=== PATIENT | female | born 2005 ===

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

== ENCOUNTER 2023-01-14 22:50 | Emergency (ER) | payer BC, OTHER ==
[~2023-01-14] VITALS: Ht 157.5 cm; Wt 70.8 kg
[2023-01-14 23:04] VITALS: BP 142/83
[2023-01-14] MEDS ORDERED: Cellcept500 MG PO (23:08)
[2023-01-14] MEDS ORDERED: HYDHCL25 PO (23:22)
== END 2023-01-14 23:33 | disposition home or self-care (01) ==
LOC: ER 22:50
DX: L30.8 Other specified dermatitis (principal)
CPT/HCPCS: A9270

== ENCOUNTER 2023-05-23 12:47 | Observation (INO) | payer BC, OTHER ==
[~2023-05-23] VITALS: Ht 157.5 cm; Wt 69.1 kg
[~2023-05-23 12:47] MED LIST changes: +Acetaminophen650 M1 PO; +CEFP200 PO; +COLCHICINE0.6 MG PO; +Cellcept500 MG PO; +DELTASONE20 MG PO; +FURO20 PO; +HYDHCL25 PO; +JARDIANCE10 MG PO; +LOSA25 PO; +METO25ER PO; +PROBIOTIC1 EA13 PO; +TRONOLANE TOP; +VANCOCIN HCL125 MG PO
[2023-05-23 13:22] LABS: Hematocrit 31.1 % (33.0-51.0); Hemoglobin 9.8 g/dL (11.5-16.0); Mean Corpuscular HGB 24.1 pg (26.0-34.0); Mean Corpuscular HGB Conc 31.5 g/dL (31.5-36.5); Mean Corpuscular Volume 76 fL (80-100); Mean Platelet Volume 10.5 fL (9.1-12.4); Platelet Count 366 K/mm3 (150-400); RDW Standard Deviation 47.5 fL (35.1-46.3); Red Blood Cell Count 4.07 M/mm3 (3.80-5.20); White Blood Cell Count 24.62 K/mm3 (4.00-11.30)
[2023-05-23 13:42] LABS: Albumin, Blood 2.3 g/dL (3.4-5.0); Albumin/Globulin Ratio 0.5 (0.8-1.8); Bilirubin, Total 1.6 mg/dL (0.1-1.0); Bun/Creatinine Ratio 15.4 (12.0-20.0); Calcium, Blood 9.1 mg/dL (8.5-10.1); Creatinine, Blood 0.78 mg/dL (0.40-1.00); Globulin, Blood 4.9 g/dL (2.2-4.0); Potassium, Blood 4.5 mmol/L (3.5-5.5); Total Protein, Blood 7.2 g/dL (6.4-8.2)
[2023-05-23 14:10] LABS: BAND PERCENT MAN 45 % (0-8); BASOPHILS PERCENT MAN 0 % (0-2); EOSINOPHILS PERCENT MAN 0 % (0-6); LYMPHOCYTES ABSOLUTE MAN 2.46 K/mm3 (0.84-5.20); LYMPHOCYTES PERCENT MAN 10 % (21-46); MONOCYTES ABSOLUTE MAN 0.98 K/mm3 (0.16-1.47); MONOCYTES PERCENT MAN 4 % (4-13); MYELOCYTE ABSOLUTE MAN 0.24 K/mm3 (0.00-0.00); MYELOCYTE PERCENT MAN 1 % (0-0); NEUTROPHILS ABSOLUTE MAN 20.92 K/mm3 (1.96-9.15); SEG NEUTROPHILS PERCENT MAN 40 % (41-73); TOTAL CELLS COUNTED 100
[2023-05-23 15:53] LABS: Albumin, Blood 2.3 g/dL (3.4-5.0); Albumin/Globulin Ratio 0.5 (0.8-1.8); Bilirubin, Direct 1.2 mg/dL (0.0-0.3); Bilirubin, Indirect 0.4 mg/dL (0.1-0.7); Bilirubin, Total 1.6 mg/dL (0.1-1.0); Globulin, Blood 4.7 g/dL (2.2-4.0)
[2023-05-24] VITALS (27 sets, daily range): BP systolic 87–101; BP diastolic 55–72
[2023-05-24 05:12] LABS: Bicarbonate Venous 25.6 mmol/L (24.0-30.0); PCO2 Venous 30.9 mmHg (38-42)
[2023-05-24 05:54] LABS: Hematocrit 27.4 % (33.0-51.0); Hemoglobin 8.9 g/dL (11.5-16.0); Mean Corpuscular HGB 24.2 pg (26.0-34.0); Mean Corpuscular HGB Conc 32.5 g/dL (31.5-36.5); Mean Corpuscular Volume 75 fL (80-100); Mean Platelet Volume 10.4 fL (9.1-12.4); Platelet Count 296 K/mm3 (150-400); RDW Coefficient Variation 16.9 % (11.7-14.2); RDW Standard Deviation 45.9 fL (35.1-46.3); Red Blood Cell Count 3.68 M/mm3 (3.80-5.20); White Blood Cell Count 15.11 K/mm3 (4.00-11.30)
[2023-05-24 06:18] LABS: BAND PERCENT MAN 23 % (0-8); BASOPHILS PERCENT MAN 0 % (0-2); EOSINOPHILS PERCENT MAN 0 % (0-6); LYMPHOCYTES ABSOLUTE MAN 1.05 K/mm3 (0.84-5.20); LYMPHOCYTES PERCENT MAN 7 % (21-46); MONOCYTES ABSOLUTE MAN 0.75 K/mm3 (0.16-1.47); MONOCYTES PERCENT MAN 5 % (4-13); NEUTROPHILS ABSOLUTE MAN 13.29 K/mm3 (1.96-9.15); SEG NEUTROPHILS PERCENT MAN 65 % (41-73); TOTAL CELLS COUNTED 100
[2023-05-24] MEDS ORDERED: ZOLP5 PO (07:56)
[2023-05-24] MEDS ORDERED: BENADRYL25 MG PO (07:57)
--- NOTE | 2023-05-24 08:00 | NUR ---
INITIAL ASSESSMENT PATIENT ALERT AND ORIENTED X 4. AFEBRILE. PATIENT DENIES PAIN. PATIENT STATES SHE FELT SOME PAIN WITH BREATHING IN ER BUT THAT IT IS MUCH BETTER. PATIENT ALSO REPORTS THAT SOB MUCH IMPROVED. PATIENT SATTING MID 90S ON RA. PATIENT IN SR TO ST, HR 90S TO LOW 100S. SBP 80S TO 90S. PATIENT STATES THAT HER BP RUNS LOW AT HOME NORMALLY. PATIENT HAD C.DIFF AT LAST ADMIT. PATIENT REPORTS C.DIFF MUCH BETTER SINCE STARTING PROBIOTICS. PATIENT REPORTS SHE IS NOW HAVING ONE FORMED STOOL PER DAY. URINE DARK ZACK IN COLOR. SKIN APPEARS WNL. IV FLUSHED AND SALINE LOCKED. BED LOW, CALL LIGHT IN REACH.
--- NOTE | 2023-05-24 12:00 | NUR ---
PATIENT AFEBRILE. VS STABLE. NO COMPLAINTS. CARE CONTINUES.
[2023-05-24] MEDS ORDERED: LEVFLO500 PO (15:30)
--- NOTE | 2023-05-24 16:20 | NUR ---
SHIFT SUMMARY PATIENT REMAINED ALERT AND ORIENTED X 4, AFEBRILE. PATIENT HAD NO COMPLAINTS OF PAIN THIS SHIFT. PATIENT REMAINED SATTING 90% AND GREATER ON RA. PATIENT DENIED SOB. PATIENT SR TO ST, HR 80S TO LOW 100S. SBP 80S TO LOW 100S. NO BM THIS SHIFT. PATIENT HAD GOOD APPETITE. PATIENT VOIDED 900 MLS OF DARK ZACK COLORED URINE THIS SHIFT. SKIN REMAINED UNCHANGED AND PATIENT FREQUENTLY REPOSITIONED SELF IN BED. PATIENT RECEIVED IV LEVAQUIN. PATIENT DISCHARGED TO HOME. ALL BELONGINGS SENT WITH PATIENT. PATIENT STATED SHE UNDERSTOOD ALL DISCHARGE INFORMATION. DISCHARGE COMPLETE.
== END 2023-05-24 16:20 | disposition home or self-care (01) ==
LOC: ER 12:47 → ERHOLD 12:48 → ICUE 12:48
PROVIDERS: Student in an Organized Health Care Education/Training Program; ADMIT Internal Medicine
DX: I31.39 Other pericardial effusion (noninflammatory) (principal); J18.9 Pneumonia, unspecified organism; I50.20 Unspecified systolic (congestive) heart failure; N02.8 Recurrent and persistent hematuria with other morphologic changes; M06.9 Rheumatoid arthritis, unspecified; Z88.0 Allergy status to penicillin; B96.89 Other specified bacterial agents as the cause of diseases classified elsewhere; M31.0 Hypersensitivity angiitis
CPT/HCPCS: 36415; 71045; 80053; 80076; 82248; 82803; 83605; 83735; 83880; 84145; 84484; 84703; 85025; 85651; 86140; 87040; 93005; 93010; 96365; 96374; 96375; 96376; 99285-25; A9270; G0378; J1885; J1956; J2270; J2930; J7030